=== PATIENT | female | born 1990 | race Caucasian/White ===

== ENCOUNTER 2017-03-29 10:40 | Inpatient (IN) | payer OTHER ==
[2017-03-29 11:50] VITALS: BMI 29.4
[2017-03-29] MEDS: DEXTROSE 5%-LACTATED RINGERS 1,000 ML IV SCH ×2 (12:00→15:09)
[2017-03-29 12:49] LABS: BASOPHIL 0.5 % (0-2.0); EOSINOPHIL 0.5 % (0-4.5); MCH 27.6 pg (25.7-33.7); MCHC 32.8 g/dl (32.0-36.0); MEAN CELL VOLUME 84.2 fl (80-96); MEAN PLT VOLUME 9.6 fl (7.5-11.1); NEUTROPHILS 78.7 % (42.8-82.8); PLATELET COUNT 249 K/MM3 (134-434); RDW 14.9 % (11.6-15.6)
[2017-03-29] MEDS ORDERED: TUBERCULIN PPD 5 TU/0.1ML SYRINGE (IN PATIENT USE ONLY) ID ONE (13:00)
[2017-03-29 13:04] LABS: INR 0.99 (0.82-1.09); PROTHROMBIN TIME (PATIENT) 10.9 SEC (9.98-11.88)
[2017-03-29 13:06] LABS: ACTIVATED PTT 24.4 SECONDS (26.9-34.4)
[2017-03-29 13:17] LABS: ANION GAP 9 (8-16); CALCIUM 8.5 mg/dL (8.5-10.1); CO2 24 mmol/L (21-32); CREATININE 0.5 mg/dL (0.55-1.02); GLUCOSE,RANDOM 115 mg/dL (74-106)
[2017-03-29 14:07] LABS: HIV 1 & 2 AB NEGATIVE; HIV 1 AGp24 NEGATIVE
--- NOTE | 2017-03-29 15:01 | PN ---
Progress Note (short form) - Note Progress Note: xx 2 cm 50 vx -2 mi fhr cat 1 ,cervidil inserted , rba have discussed with patient
--- NOTE | 2017-03-29 15:48 | HP ---
Past Medical History - Primary Care Physician PCP:: Gilberto Cardoso - Admission Chief Complaint: [id number] weeks, request of induction History of Present Illness: 27 yo edc 815/ 40.2 weeks, requesting induction of labor, risks discussed , fhr cat 1 , irregular contraction, cx 2 cm 50 vx -2 mi History Source: Patient Limitations to Obtaining History: No Limitations - Past Medical History ...: 2 ...Para: 0 ...Term: 0 ...: 0 ...Spon : 0 ...Induced : 1 ...Multiple Gestation: 0 ...LMP: 06/19/16 ... Weeks Gestation by Dates: 40.2 ...EDC by Dates: 03/27/17 - Past Surgical History Hx Myomectomy: No Hx Transabdominal Cerclage: No - Smoking History Smoking history: Never smoked Have you smoked in the past 12 months: No - Alcohol/Substance Use Hx Alcohol Use: No - Social History Usual Living Arrangement: Yes: With Spouse History of Recent Travel: No Home Medications - Allergies Allergies/Adverse Reactions: Allergies Allergy/AdvReac Type Severity Reaction Status Date / Time No Known Allergies Allergy Verified 03/29/17 11:37 - Home Medications Home Medications: Ambulatory Orders Vit/Iron Fumarate/FA [ Tablet] 1 each PO DAILY 03/29/17 Review of Systems - Review of Systems Constitutional: reports: No Symptoms Eyes: reports: No Symptoms HENT: reports: No Symptoms Neck: reports: No Symptoms Cardiovascular: reports: No Symptoms Respiratory: reports: No Symptoms Gastrointestinal: reports: No Symptoms Genitourinary: reports: No Symptoms Breasts: reports: No Symptoms Reported Musculoskeletal: reports: No Symptoms Integumentary: reports: No Symptoms Neurological: reports: No Symptoms Endocrine: reports: No Symptoms Hematology/Lymphatic: reports: No Symptoms Psychiatric: reports: No Symptoms Physical Exam - Maternity Vital Signs: Vital Signs Temperature 97.9 F 03/29/17 11:42 Pulse Rate 79 03/29/17 14:00 Respiratory Rate 20 03/29/17 14:00 Blood Pressure 104/75 03/29/17 14:00 O2 Sat by Pulse Oximetry (%) Constitutional: Yes: Well Nourished, No Distress, Calm Eyes: Yes: WNL, Conjunctiva Clear, EOM Intact HENT: Yes: WNL, Atraumatic, Normocephalic Neck: Yes: WNL, Supple, Trachea Midline Cardiovascular: Yes: WNL, Regular Rate and Rhythm Breast(s): Yes: WNL - Abdominal Exam/OB Number of Fetuses: Single Presentation: Vertex Contractions: Yes Regularity: Irregular Intensity: Unaware Monitor Mode: External Heart Rate Location: [facility] Category: I - Vaginal Exam/OB Vaginal Bleediing: Bloody Show Speculum Exam: No Dilatation (cm): 2 cm Effacement (%): 50 Amniotic Membrane Status: Intact Presentation: Vertex/Position Station: -2 - Physical Exam Musculoskeletal: Yes: WNL Edema: LLE: Trace, RLE: Trace Deep Tendon Reflex Grade: Normal +2 - Labs Lab Results: CBC, BMP 03/29/17 12:30 03/29/17 12:30 Hemorrhage Risk Assessment - Risk Factors Risk Score: 0 Risk Level: Low Risk Problem List - Problems (1) Post-term , 40-42 weeks of gestation Code(s): O48.0 - POST-TERM (2) Elective induction of labor planned Code(s): [id number] - Assessment/Plan admit, fh monitoring, cervidil induction, rba discussed
[2017-03-29] MEDS ORDERED: DINOPROSTONE 10 MG VAGINAL SUPPOSITORY VG ONE (16:12)
[2017-03-30] MEDS ORDERED: PROMETHAZINE HCL 25 MG/1 ML VIAL IVPUSH ONE (01:56)
[2017-03-30] MEDS ORDERED: BUTORPHANOL TARTRATE 1 MG/ML VIAL IVPUSH ONE (01:56)
--- NOTE | 2017-03-30 01:56 | PN ---
Progress Note (short form) - Note Progress Note: cx 2 cm, 70 vx -2 mi, 2 variable decel with good btb variability . accelration, cervidil removed , wants pain meds Problem List - Problems (1) Post-term , 40-42 weeks of gestation Code(s): O48.0 - POST-TERM (2) Elective induction of labor planned Code(s): [id number] -
[2017-03-30] MEDS: ELECTROLYTE-148 SOLN 1,000 ML IV SCH ×4 (07:55→17:30)
[2017-03-30] MEDS ORDERED: OXYTOCIN 15 UNITS/ LR 250 ML 250 ML IVPB SCH (08:30)
--- NOTE | 2017-03-30 08:32 | PN ---
Progress Note (short form) - Note Progress Note: cx 2 to 3 cm 75, vx -2 mi, fhr cat 1, irregular contraction, c/o sever pain , wants epidural Problem List - Problems (1) Post-term , 40-42 weeks of gestation Code(s): O48.0 - POST-TERM (2) Elective induction of labor planned Code(s): [id number] -
[2017-03-30] MEDS: PRENATAL VITAMINS W/ FOLIC ACID TABLET (FP) PO SCH (09:23)
--- NOTE | 2017-03-30 09:35 | PN ---
Progress Note (short form) - Note Progress Note: cx 4 cm 75 vx -1 arom, clear , fhr cat 1, irregular contraction Problem List - Problems (1) Post-term , 40-42 weeks of gestation Code(s): O48.0 - POST-TERM (2) Elective induction of labor planned Code(s): [id number] -
[2017-03-30] MEDS: FENTANYL/BUPIVACAINE/NS/PF - PCEA - 50 ML DISP.SYRIN EP SCH ×2 (09:45→12:56)
--- NOTE | 2017-03-30 14:15 | PN ---
Progress Note (short form) - Note Progress Note: cx 8 cm , 100 vx 0 mr, fhr cat1. regular contraction Problem List - Problems (1) Post-term , 40-42 weeks of gestation Code(s): O48.0 - POST-TERM (2) Elective induction of labor planned Code(s): [id number] -
[2017-03-30] MEDS ORDERED: BENZOCAINE 28 GM HEMORRHOIDAL OINTMENT TP PRN (19:36)
[2017-03-30] MEDS ORDERED: oxyCODONE HCL 5 MG TABLET PO PRN (19:36)
[2017-03-30] MEDS ORDERED: WITCH HAZEL 50% (TUCKS) 40 PAD/JAR PAD TP PRN (19:36)
[2017-03-30] MEDS ORDERED: BENZOCAINE 20% 57 GM BOTTLE TP PRN (19:36)
[2017-03-30] MEDS ORDERED: BISACODYL 10 MG SUPP.RECT RC PRN (19:36)
[2017-03-30] MEDS ORDERED: ACETAMINOPHEN 325 MG TABLET (FP) PO PRN (19:36)
[2017-03-30] MEDS ORDERED: METHYLERGONOVINE MALEATE 0.2 MG/1 ML AMP IM PRN (19:36)
[2017-03-30] MEDS ORDERED: D5W-LR W/ 20 UNITS OXYTOCIN 1,000 ML IV SCH (19:45)
[2017-03-30 19:56] LABS: ARTERIAL BLOOD GAS BASE EXCESS -2.5 meq/l (-2-2); ARTERIAL BLOOD GAS HCO3 22.8 meq/L (22-26)
[2017-03-30 19:57] LABS: ARTERIAL BLOOD GAS pH 7.34 (7.35-7.45)
[2017-03-30 19:58] LABS: ARTERIAL BLD GAS O2 SATURATION 67.9 % (90-98.9); ARTERIAL BLOOD GAS PO2 31.5 mmHg (80-100); LPM/O2% 21%; PT. ON O2? no; TYPE OF O2 room air
[2017-03-30 20:06] LABS: ARTERIAL BLOOD GAS BASE EXCESS -4.9 meq/l (-2-2); ARTERIAL BLOOD GAS HCO3 22.3 meq/L (22-26); ARTERIAL BLOOD GAS pH 7.26 (7.35-7.45); PT. ON O2? no
[2017-03-30 20:07] LABS: ARTERIAL BLD GAS O2 SATURATION 58.5 % (90-98.9); ARTERIAL BLOOD GAS PO2 28.4 mmHg (80-100); LPM/O2% 21%
[2017-03-31] MEDS: FERROUS SO4 325 MG TABLET (FP) PO SCH ×3 (03:06→21:57)
[2017-03-31 07:46] LABS: BASOPHIL 0.4 % (0-2.0); EOSINOPHIL 0.3 % (0-4.5); MCH 27.2 pg (25.7-33.7); MCHC 32.3 g/dl (32.0-36.0); MEAN CELL VOLUME 84.1 fl (80-96); MEAN PLT VOLUME 9.5 fl (7.5-11.1); NEUTROPHILS 77.6 % (42.8-82.8); PLATELET COUNT 196 K/MM3 (134-434); WHITE BLOOD COUNT 17.1 K/mm3 (4.0-10.0)
[2017-03-31] MEDS: PRENATAL VITAMINS W/ FOLIC ACID TABLET (FP) PO SCH (09:45)
[2017-03-31] MEDS ORDERED: PRENATAL VITAMINS W/ FOLIC ACID TABLET (FP) PO SCH (10:00)
[2017-03-31] MEDS ORDERED: DIPHTH,PERTUSS(ACELL),TET 0.5 ML DISP.SYRIN IM ONE (13:00)
--- NOTE | 2017-03-31 13:01 | PN ---
Progress Note (short form) - Note Progress Note: ppd 1 doing well, no c/o voids ok CBC, BMP 03/31/17 07:35 03/29/17 12:30 Last Vital Signs Temp Pulse Resp BP Pulse Ox 98.9 F 99 H 18 124/73 100 03/31/17 10:00 03/31/17 10:00 03/31/17 10:00 03/31/17 10:00 03/30/17 21:11 abdomen soft, non tender , no cva uterus firm , non tender lochia mild \no calf tenderness plan ambulate , observe Problem List - Problems (1) Post-term , 40-42 weeks of gestation Code(s): O48.0 - POST-TERM (2) Elective induction of labor planned Code(s): [id number] -
[2017-03-31] MEDS: IBUPROFEN 600 MG TABLET (FP) PO PRN (21:57)
[2017-03-31] MEDS ORDERED: SENNOSIDES/DOCUSATE COMBO (SENNA PLUS) TABLET (UD) PO PRN (22:00)
[2017-04-01 08:05] VITALS: BP 116/84; PULSE 76; TEMP 98.4
[2017-04-01] MEDS: FERROUS SO4 325 MG TABLET (FP) PO SCH (09:12)
[2017-04-01] MEDS: IBUPROFEN 600 MG TABLET (FP) PO PRN (09:13)
[2017-04-01] MEDS: PRENATAL VITAMINS W/ FOLIC ACID TABLET (FP) PO SCH (09:13)
--- NOTE | 2017-04-01 09:35 | DS ---
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: Vital Signs Temperature 98.4 F 04/01/17 08:04 Pulse Rate 76 04/01/17 08:04 Respiratory Rate 20 04/01/17 08:04 Blood Pressure 116/84 04/01/17 08:04 O2 Sat by Pulse Oximetry (%) 100 03/30/17 21:11 Constitutional: Yes: Well Nourished, No Distress, Calm Eyes: Yes: WNL, Conjunctiva Clear, EOM Intact HENT: Yes: WNL, Atraumatic, Normocephalic Neck: Yes: WNL, Supple, Trachea Midline Cardiovascular: Yes: WNL, Regular Rate and Rhythm Respiratory: Yes: WNL, Regular, CTA Bilaterally Gastrointestinal: Yes: WNL ...Rectal Exam: Yes: WNL Renal/: Yes: WNL External Genitalia: Yes: Normal ....Post : Yes: Uterus firm, Uterus non-tender, Slight lochia rubra Breast(s): Yes: WNL Musculoskeletal: Yes: WNL Extremities: Yes: WNL Edema: RLE: Trace Integumentary: Yes: WNL Neurological: Yes: WNL, Alert, Oriented ...Motor Strength: WNL Psychiatric: Yes: WNL, Alert, Oriented Labs: CBC, BMP 03/31/17 07:35 03/29/17 12:30 Delivery - Delivery Vaginal Delivery: Spontaneous (due to maternal exustion, and epidural anesthesis unable to push, head on pernium , out let vaccuum delivey done, keewee vaccum applied ,position checked, head brought over perinium, median episiotomy done, head deliverd , nasopharynx suctioned, ant and post shoulder with no difficulty. baby girl 9/9 , no complication, episiotomy repaired in 3 layers, ebl 300 cc) Type of Anesthesia: Local Episiotomy/Laceration: Midline EBL (cc): 350 Delivery, Single - Stages of Labor Date 1st Stage Initiatied: 03/30/17 Time 1st Stage Initiated: 02:00 Date 2nd Stage Initiated: 03/30/17 Time 2nd Stage Initiated: 17:00 Date of Delivery: 03/30/17 Time of Delivery: 18:52 Time Placenta Delivered: 18:55 Placenta: Yes: Spontaneous - Condition of Forest Officer/Sizer Hand Present: No Gender: Female Weight: 6 lb 8 oz Total Hours ROM (Hrs/Mins): 05/09 - 1 Minute Total Score: 9 5 Minutes Total Score: 9 - Feeding Plan Initial Plan: Exclusive throughout hospitalization Discharge Summary Reason For Visit: LABOR Current Active Problems Elective induction of labor planned (Acute) Post-term , 40-42 weeks of gestation (Acute) Procedures: Principal: - Instructions Referrals: Gilberto Cardoso MD [Staff Physician] - - Home Medications Comprehensive Discharge Medication List: Ambulatory Orders Vit/Iron Fumarate/FA [ Tablet] 1 each PO DAILY 03/29/17
--- NOTE | 2017-04-05 20:23 | DS ---
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 Infant Gender: Female Weight: 6 lb 8 oz Total Hours ROM (Hrs/Mins): 9/27 - 1 Minute Total Score: 9 5 Minutes Total Score: 9 - [place] Feeding Plan Initial Plan: Exclusive throughout hospitalization Discharge Summary Reason For Visit: LABOR Condition: Good - Instructions Diet, Activity, Other Instructions: regular diet, no intercourse , follow up office 4 weeks Referrals: Gilberto Cardoso MD [Staff Physician] - Disposition: HOME - Home Medications Comprehensive Discharge Medication List: Ambulatory Orders Vit/Iron Fumarate/FA [ Tablet] 1 each PO DAILY 03/29/17 Ibuprofen [Motrin -] 600 mg PO QID #28 tablet 04/01/17
== END 2017-04-01 13:50 | disposition home or self-care (01) | DRG 560 ==
LOC: JLDR 10:40 → J3N 03-31 02:20
PROVIDERS: ADMIT Obstetrics & Gynecology; ATTEND Obstetrics & Gynecology
PROC: 10D07Z6 Extraction of Products of Conception, Vacuum, Via Natural or Artificial Opening (ICD-10-PCS; principal; 2017-03-30)
PROC: 0W8NXZZ Division of Female Perineum, External Approach (ICD-10-PCS; 2017-03-30)
DX: O48.0 Post-term pregnancy (principal); O75.81 Maternal exhaustion complicating labor and delivery; O66.5 Attempted application of vacuum extractor and forceps; Z3A.40 40 weeks gestation of pregnancy; Z37.0 Single live birth
CPT/HCPCS: 36415; 36600; 59409; 80048; 82803; 85025; 85610; 85730; 86593; 86850; 86900; 86901; 87389; 90715